=== PATIENT | female | born 1945 | race Caucasian/White ===

== ENCOUNTER → 2020-10-27 | Outpatient (CLI) | payer MEDICARE, OTHER | LOC: CT 10-22 15:30 | DX: M54.42 Lumbago with sciatica, left side (principal); M51.34 Other intervertebral disc degeneration, thoracic region; M51.36 Other intervertebral disc degeneration, lumbar region; M51.06 Intervertebral disc disorders with myelopathy, lumbar region; R91.1 Solitary pulmonary nodule | CPT/HCPCS: 72128; 72131 ==